=== PATIENT | male | born 1965 | race Caucasian/White ===

== ENCOUNTER → 2016-08-07 | Outpatient (REF) | payer OTHER ==
[~2016-08-07] MED LIST: ALLO100T PO; ASPI32ECTA PO; ATEN25TA PO; ATOR1TAB18 PO; JANU50TA4 PO; RAMI5CA PO; ZYLO300T4 PO; nitroglycerin
[2016-08-07 12:24] LABS: ALBUMIN/GLOBULIN RATIO 1.38 (1.00-1.93); ALKALINE PHOSPHATASE 97 U/L (45-117); ALT/SGPT 40 U/L (12-78); ANION GAP 4 MEQ/L (8-16); AST/SGOT 19 U/L (15-37); BILIRUBIN,TOTAL 0.5 MG/DL (0.2-1.0); BLOOD UREA NITROGEN 16 MG/DL (7-18); CALCIUM LEVEL 8.9 MG/DL (8.5-10.1); CARBON DIOXIDE LEVEL 34 MEQ/L (21-32); CHLORIDE LEVEL 102 MEQ/L (98-107); CHOLESTEROL LEVEL 109 MG/DL (<200); CREATININE FOR GFR 1.19 MG/DL (0.70-1.30); GLOMERULAR FILTRATION RATE > 60.0 (>56); GLUCOSE, FASTING 106 MG/DL (70-105); POTASSIUM SERUM 4.1 MEQ/L (3.5-5.1); SODIUM LEVEL 140 MEQ/L (136-145); TOTAL PROTEIN 6.9 GM/DL (6.4-8.2); TRIGLYCERIDES LEVEL 172 MG/DL (<150); URIC ACID 4.5 MG/DL (3.5-7.2)
== END ==
LOC: M SFHCCLAY 07:42
PROVIDERS: ATTEND Family Medicine
DX: E11.9 Type 2 diabetes mellitus without complications (principal); Z12.5 Encounter for screening for malignant neoplasm of prostate; M1A.0790 Idiopathic chronic gout, unspecified ankle and foot, without tophus (tophi)
CPT/HCPCS: 80053; 80061; 83036; 84550; G0103

== ENCOUNTER → 2016-12-06 | Outpatient (REF) | payer OTHER ==
[~2016-12-06] MED LIST changes: +ASPI325T24 PO; -ASPI32ECTA PO; -ATOR1TAB18 PO; +ATOR80TA59 PO
[2016-12-06 11:26] LABS: BASO % 0.6 % (0.0-1.0); EOS # 0.2 10^3/uL (0.0-0.50); EOS % 4.1 % (0.0-3.0); LYMPH # 1.2 10^3/uL (1.5-4.5); LYMPH % 26.3 % (24.0-44.0); MEAN CORPUSCULAR HEMOGLOBIN 32.1 pg (27.0-33.0); MEAN CORPUSCULAR HGB CONC 34.8 g/dl (32.0-36.5); MEAN CORPUSCULAR VOLUME 92.3 fl (80.0-96.0); MONO # 0.4 10^3/uL (0.0-0.8); MONO % 8.2 % (0.0-5.0); NEUTROPHILS # 2.8 10^3/uL (1.8-7.7); NEUTROPHILS % 60.8 % (36.0-66.0); PLATELET COUNT, AUTOMATED 144 10^3/uL (150-450); RED CELL DISTRIBUTION WIDTH 12.1 % (11.5-14.5); WHITE BLOOD COUNT 4.6 10^3/uL (4.0-10.0)
[2016-12-06 11:32] LABS: ANION GAP 3 MEQ/L (8-16); BLOOD UREA NITROGEN 17 MG/DL (7-18); CARBON DIOXIDE LEVEL 33 MEQ/L (21-32); CHLORIDE LEVEL 104 MEQ/L (98-107); CREATININE FOR GFR 1.17 MG/DL (0.70-1.30); GLOMERULAR FILTRATION RATE > 60.0 (>56); GLUCOSE, FASTING 123 MG/DL (70-105); PHOSPHORUS LEVEL 3.4 MG/DL (2.5-4.9); POTASSIUM SERUM 4.6 MEQ/L (3.5-5.1); SODIUM LEVEL 140 MEQ/L (136-145)
== END ==
LOC: M LABDRAWC 11:18
PROVIDERS: ATTEND Internal Medicine Cardiovascular Disease
DX: R07.2 Precordial pain (principal); I25.2 Old myocardial infarction; I11.9 Hypertensive heart disease without heart failure; Z95.5 Presence of coronary angioplasty implant and graft

== ENCOUNTER → 2017-01-29 | Outpatient (REF) | payer OTHER ==
[2017-01-29 12:17] LABS: ALBUMIN 4.1 GM/DL (3.2-5.2); ALBUMIN/GLOBULIN RATIO 0.87 (1.00-1.93); ALKALINE PHOSPHATASE 110 U/L (45-117); ALT/SGPT 36 U/L (12-78); ANION GAP 7 MEQ/L (8-16); AST/SGOT 16 U/L (7-37); BILIRUBIN,TOTAL 0.4 MG/DL (0.2-1.0); BLOOD UREA NITROGEN 18 MG/DL (7-18); CALCIUM LEVEL 9.3 MG/DL (8.5-10.1); CARBON DIOXIDE LEVEL 30 MEQ/L (21-32); CHLORIDE LEVEL 102 MEQ/L (98-107); CHOLESTEROL LEVEL 131 MG/DL (<200); CREATININE FOR GFR 1.27 MG/DL (0.70-1.30); GLOMERULAR FILTRATION RATE > 60.0 (>56); GLUCOSE, FASTING 123 MG/DL (70-105); POTASSIUM SERUM 4.5 MEQ/L (3.5-5.1); SODIUM LEVEL 139 MEQ/L (136-145); TOTAL PROTEIN 8.8 GM/DL (6.4-8.2); TRIGLYCERIDES LEVEL 130 MG/DL (<150); URIC ACID 4.9 MG/DL (3.5-7.2)
== END ==
LOC: M SFHCCLAY 07:44
PROVIDERS: ATTEND Family Medicine
DX: E11.9 Type 2 diabetes mellitus without complications (principal); M1A.0790 Idiopathic chronic gout, unspecified ankle and foot, without tophus (tophi)

== ENCOUNTER → 2017-10-03 | Outpatient (REF) | payer OTHER ==
[2017-10-03 11:33] LABS: ALBUMIN 3.9 GM/DL (3.2-5.2); ALBUMIN/GLOBULIN RATIO 1.22 (1.00-1.93); ALKALINE PHOSPHATASE 94 U/L (45-117); ALT/SGPT 40 U/L (12-78); ANION GAP 7 MEQ/L (8-16); AST/SGOT 18 U/L (7-37); BILIRUBIN,TOTAL 0.5 MG/DL (0.2-1.0); BLOOD UREA NITROGEN 13 MG/DL (7-18); CALCIUM LEVEL 9.1 MG/DL (8.5-10.1); CARBON DIOXIDE LEVEL 32 MEQ/L (21-32); CHLORIDE LEVEL 102 MEQ/L (98-107); CHOLESTEROL LEVEL 119 MG/DL (<200); CHOLESTEROL RISK RATIO 3.305 (<5); CREATININE FOR GFR 1.22 MG/DL (0.70-1.30); GLOMERULAR FILTRATION RATE > 60.0 (>56); GLUCOSE, FASTING 118 MG/DL (70-100); HDL CHOLESTEROL 36 MG/DL (>40); LDL CHOLESTEROL 53.8 MG/DL (<100); NON-HDL-C 83 MG/DL; POTASSIUM SERUM 4.6 MEQ/L (3.5-5.1); PSA SCREENING 0.55 NG/ML (< 4.0); SODIUM LEVEL 141 MEQ/L (136-145); TOTAL PROTEIN 7.1 GM/DL (6.4-8.2); TRIGLYCERIDES LEVEL 146 MG/DL (<150)
[2017-10-03 12:06] LABS: ESTIMATED AVERAGE GLUCOSE 154 MG/DL (60-110)
[2017-10-03 12:14] LABS: CREATININE, URINE 86.2 MG/DL; MALB URINE SIEMENS < 5.0 MG/L; MAU/CREAT RATIO 5.8 MCG/MG (0.0-30.0)
== END ==
LOC: M SFHCCLAY 07:45
DX: E11.9 Type 2 diabetes mellitus without complications (principal); Z12.5 Encounter for screening for malignant neoplasm of prostate; M1A.0790 Idiopathic chronic gout, unspecified ankle and foot, without tophus (tophi)

== ENCOUNTER → 2018-05-06 | Outpatient (REF) | payer OTHER ==
[~2018-05-06] MED LIST changes: -ASPI325T24 PO; +ASPI325T25 PO; +RAMI1CAP24 PO; -RAMI5CA PO; -ZYLO300T4 PO; +ZYLO300T6 PO
[2018-05-06 12:20] LABS: BLOOD UREA NITROGEN 20 MG/DL (7-18); CARBON DIOXIDE LEVEL 28 MEQ/L (21-32); CHLORIDE LEVEL 102 MEQ/L (98-107); CREATININE FOR GFR 1.31 MG/DL (0.70-1.30); GLOMERULAR FILTRATION RATE > 60.0 (>56); GLUCOSE, FASTING 125 MG/DL (70-100); POTASSIUM SERUM 4.4 MEQ/L (3.5-5.1); SODIUM LEVEL 137 MEQ/L (136-145)
[2018-05-06 13:12] LABS: HEMOGLOBIN A1c 6.5 %
== END ==
LOC: M SFHCCLAY 07:36
PROVIDERS: ATTEND Family Medicine
DX: E11.9 Type 2 diabetes mellitus without complications (principal)

== ENCOUNTER → 2018-11-05 | Outpatient (REF) | payer OTHER ==
[~2018-11-05] MED LIST changes: +ASPI-255 PO; -ASPI325T25 PO
[2018-11-05 12:46] LABS: ALBUMIN 4.1 GM/DL (3.2-5.2); ALT/SGPT 44 U/L (12-78); BILIRUBIN,TOTAL 0.7 MG/DL (0.2-1.0); BLOOD UREA NITROGEN 17 MG/DL (7-18); CARBON DIOXIDE LEVEL 30 MEQ/L (21-32); CHLORIDE LEVEL 101 MEQ/L (98-107); CHOLESTEROL LEVEL 137 MG/DL (<200); CHOLESTEROL RISK RATIO 3.261 (<5); CREATININE FOR GFR 1.21 MG/DL (0.70-1.30); GLOMERULAR FILTRATION RATE > 60.0 (>56); GLUCOSE, FASTING 122 MG/DL (70-100); HDL CHOLESTEROL 42 MG/DL (>40); LDL CHOLESTEROL 74 MG/DL (<100); NON-HDL-C 95 MG/DL; POTASSIUM SERUM 4.7 MEQ/L (3.5-5.1); SODIUM LEVEL 138 MEQ/L (136-145); TOTAL PROTEIN 7.2 GM/DL (6.4-8.2); TRIGLYCERIDES LEVEL 107 MG/DL (<150); URIC ACID 4.5 MG/DL (3.5-7.2)
[2018-11-05 13:13] LABS: CREATININE, URINE 56.7 MG/DL; MALB URINE SIEMENS 34.1 MG/L; MAU/CREAT RATIO 60.1 MCG/MG (0.0-30.0)
[2018-11-05 15:11] LABS: HEMOGLOBIN A1c 6.5 %
== END ==
LOC: M SFHCCLAY 09:18
PROVIDERS: ATTEND Family Medicine
DX: E11.9 Type 2 diabetes mellitus without complications (principal); M1A.9XX0 Chronic gout, unspecified, without tophus (tophi)

== ENCOUNTER → 2019-03-29 | Outpatient (CLI) | payer BC, OTHER ==
--- NOTE | 2019-03-29 08:58 | REP ---
Clinical: the cough . Comparison: None . Technique: PA and lateral. Findings: Evidence of prior sternotomy and CABG. Cardiac silhouette is normal. The lung cano are clear and without acute consolidation, effusion, or pneumothorax. The skeletal structures are intact and normal. Impression: 1. No acute cardiopulmonary process. Electronically Signed by Glen Hernandez MD 03/29/2019 08:49 A
== END ==
LOC: M CLY 08:11
PROVIDERS: ATTEND Family Medicine
DX: R05 Cough (principal)

== ENCOUNTER → 2019-05-12 | Outpatient (REF) | payer OTHER ==
[2019-05-12 11:37] LABS: ALBUMIN 4.1 GM/DL (3.2-5.2); ALT/SGPT 40 U/L (12-78); BILIRUBIN,TOTAL 0.5 MG/DL (0.2-1.0); BLOOD UREA NITROGEN 20 MG/DL (7-18); CALCIUM LEVEL 9.4 MG/DL (8.5-10.1); CARBON DIOXIDE LEVEL 34 MEQ/L (21-32); CHLORIDE LEVEL 100 MEQ/L (98-107); CREATININE FOR GFR 1.31 MG/DL (0.70-1.30); GLOMERULAR FILTRATION RATE > 60.0 (>56); GLUCOSE, FASTING 131 MG/DL (70-100); POTASSIUM SERUM 4.7 MEQ/L (3.5-5.1); SODIUM LEVEL 138 MEQ/L (136-145); TOTAL PROTEIN 7.3 GM/DL (6.4-8.2)
[2019-05-12 11:47] LABS: HEMOGLOBIN A1c 7.3 %
== END ==
LOC: M SFHCCLAY 08:05
PROVIDERS: ATTEND Family Medicine
DX: E11.9 Type 2 diabetes mellitus without complications (principal)

== ENCOUNTER → 2019-11-15 | Outpatient (REF) | payer OTHER ==
[2019-11-15 12:39] LABS: BASO # 0.1 10^3/uL (0.0-0.2); BASO % 1.1 % (0.0-1.0); EOS # 0.3 10^3/uL (0.0-0.5); HEMATOCRIT 41.2 % (42.0-52.0); HEMOGLOBIN 13.5 g/dl (13.5-17.5); LYMPH # 1.5 10^3/uL (1.5-5.0); LYMPH % 27.5 % (24.0-44.0); MEAN CORPUSCULAR HEMOGLOBIN 30.7 pg (27.0-33.0); MEAN CORPUSCULAR HGB CONC 32.8 g/dl (32.0-36.5); MEAN CORPUSCULAR VOLUME 93.6 fl (80.0-96.0); MONO # 0.5 10^3/uL (0.0-0.8); MONO % 9.3 % (0.0-5.0); NEUTROPHILS # 3.2 10^3/uL (1.5-8.5); NEUTROPHILS % 56.9 % (36.0-66.0); PLATELET COUNT, AUTOMATED 165 10^3/uL (150-450); WHITE BLOOD COUNT 5.6 10^3/uL (4.0-10.0)
[2019-11-15 12:56] LABS: ALBUMIN 3.8 GM/DL (3.2-5.2); ALT/SGPT 38 U/L (12-78); BILIRUBIN,TOTAL 0.5 MG/DL (0.2-1.0); BLOOD UREA NITROGEN 16 MG/DL (7-18); CALCIUM LEVEL 9.3 MG/DL (8.5-10.1); CARBON DIOXIDE LEVEL 29 MEQ/L (21-32); CHLORIDE LEVEL 104 MEQ/L (98-107); CHOLESTEROL LEVEL 103 MG/DL (<200); CHOLESTEROL RISK RATIO 2.942 (<5); CREATININE FOR GFR 1.21 MG/DL (0.70-1.30); GLOMERULAR FILTRATION RATE > 60.0 (>56); GLUCOSE, FASTING 129 MG/DL (70-100); HDL CHOLESTEROL 35 MG/DL (>40); LDL CHOLESTEROL 43 MG/DL (<100); MAGNESIUM LEVEL 1.9 MG/DL (1.8-2.4); NON-HDL-C 68 MG/DL; POTASSIUM SERUM 4.6 MEQ/L (3.5-5.1); SODIUM LEVEL 138 MEQ/L (136-145); TOTAL PROTEIN 6.6 GM/DL (6.4-8.2); TRIGLYCERIDES LEVEL 124 MG/DL (<150); URIC ACID 4.4 MG/DL (3.5-7.2)
[2019-11-15 13:08] LABS: HEMOGLOBIN A1c 6.5 %
== END ==
LOC: M LABDRAWC 11:09
PROVIDERS: ATTEND Family Medicine
DX: E11.9 Type 2 diabetes mellitus without complications (principal); M1A.9XX0 Chronic gout, unspecified, without tophus (tophi); I11.9 Hypertensive heart disease without heart failure

== ENCOUNTER → 2020-05-10 | Outpatient (REF) | payer OTHER ==
[2020-05-10 11:53] LABS: HEMOGLOBIN A1c 6.8 %
[2020-05-10 12:04] LABS: BLOOD UREA NITROGEN 20 MG/DL (7-18); CALCIUM LEVEL 9.3 MG/DL (8.5-10.1); CARBON DIOXIDE LEVEL 32 MEQ/L (21-32); CHLORIDE LEVEL 103 MEQ/L (98-107); CREATININE FOR GFR 1.15 MG/DL (0.70-1.30); GLOMERULAR FILTRATION RATE > 60.0 (>56); GLUCOSE, FASTING 127 MG/DL (70-100); POTASSIUM SERUM 4.8 MEQ/L (3.5-5.1); SODIUM LEVEL 138 MEQ/L (136-145)
== END ==
LOC: M SFHCCLAY 07:59
PROVIDERS: ATTEND Family Medicine
DX: E11.9 Type 2 diabetes mellitus without complications (principal)

== ENCOUNTER → 2020-11-10 | Outpatient (REF) | payer OTHER ==
[2020-11-10 11:26] LABS: ALBUMIN 3.6 GM/DL (3.2-5.2); ALT/SGPT 32 U/L (12-78); BILIRUBIN,TOTAL 0.5 MG/DL (0.2-1.0); BLOOD UREA NITROGEN 15 MG/DL (7-18); CALCIUM LEVEL 9.3 MG/DL (8.5-10.1); CARBON DIOXIDE LEVEL 31 MEQ/L (21-32); CHLORIDE LEVEL 100 MEQ/L (98-107); CHOLESTEROL LEVEL 106 MG/DL (<200); CHOLESTEROL RISK RATIO 2.864 (<5); CREATININE FOR GFR 1.23 MG/DL (0.70-1.30); GLOMERULAR FILTRATION RATE > 60.0 (>56); GLUCOSE, FASTING 127 MG/DL (70-100); HDL CHOLESTEROL 37 MG/DL (>40); LDL CHOLESTEROL 48 MG/DL (<100); MAGNESIUM LEVEL 1.7 MG/DL (1.8-2.4); NON-HDL-C 69 MG/DL; POTASSIUM SERUM 4.2 MEQ/L (3.5-5.1); SODIUM LEVEL 136 MEQ/L (136-145); TOTAL PROTEIN 6.6 GM/DL (6.4-8.2); TRIGLYCERIDES LEVEL 106 MG/DL (<150); URIC ACID 4.2 MG/DL (3.5-7.2)
[2020-11-10 11:33] LABS: CREATININE, URINE 81.8 MG/DL; MALB URINE SIEMENS < 5.0 MG/L; MAU/CREAT RATIO 6.1 MCG/MG (0.0-30.0)
[2020-11-10 12:15] LABS: HEMOGLOBIN A1c 6.7 %
== END ==
LOC: M SFHCCLAY 08:39
PROVIDERS: ATTEND Family Medicine
DX: E11.9 Type 2 diabetes mellitus without complications (principal); I25.10 Atherosclerotic heart disease of native coronary artery without angina pectoris; M1A.9XX0 Chronic gout, unspecified, without tophus (tophi)

== ENCOUNTER → 2021-05-23 | Outpatient (REF) | payer OTHER ==
[2021-05-23 12:01] LABS: ALBUMIN 4.1 GM/DL (3.2-5.2); ALT/SGPT 43 U/L (12-78); BILIRUBIN,TOTAL 0.6 MG/DL (0.2-1.0); BLOOD UREA NITROGEN 18 MG/DL (7-18); CALCIUM LEVEL 9.3 MG/DL (8.5-10.1); CARBON DIOXIDE LEVEL 32 MEQ/L (21-32); CHLORIDE LEVEL 105 MEQ/L (98-107); CREATININE FOR GFR 1.13 MG/DL (0.70-1.30); GLOMERULAR FILTRATION RATE > 60.0 (>56); GLUCOSE, FASTING 124 MG/DL (70-100); POTASSIUM SERUM 4.6 MEQ/L (3.5-5.1); SODIUM LEVEL 140 MEQ/L (136-145); TOTAL PROTEIN 6.9 GM/DL (6.4-8.2)
[2021-05-23 12:29] LABS: HEMOGLOBIN A1c 6.6 %
== END ==
LOC: M SFHCCLAY 07:39
PROVIDERS: ATTEND Family Medicine
DX: E11.9 Type 2 diabetes mellitus without complications (principal)

== ENCOUNTER → 2022-02-05 | Outpatient (REF) | payer OTHER ==
[2022-02-05 14:15] LABS: HEMOGLOBIN A1c 7.6 % (4.0-6.0)
[2022-02-05 14:18] LABS: URIC ACID 4.3 MG/DL (3.7-9.2)
[2022-02-05 14:21] LABS: ALBUMIN 3.7 G/DL (3.2-5.2); ALKALINE PHOSPHATASE 113 U/L (46-116); ALT/SGPT 26 U/L (7.0-40); AST/SGOT 19 U/L (<34); BILIRUBIN,TOTAL 0.6 MG/DL (0.3-1.2); BLOOD UREA NITROGEN 18 MG/DL (9-23); CALCIUM LEVEL 9.3 MG/DL (8.5-10.1); CARBON DIOXIDE LEVEL 29 MMOL/L (20-31); CHLORIDE LEVEL 101 MMOL/L (98-107); CHOLESTEROL LEVEL 101 MG/DL (<200); CHOLESTEROL RISK RATIO 3.11 (<5); CREATININE FOR GFR 1.07 MG/DL (0.70-1.30); CREATININE, URINE 100.7 MG/DL; GLOMERULAR FILTRATION RATE > 60.0 (>56); GLUCOSE, FASTING 143 MG/DL (60-100); HDL CHOLESTEROL 32.4 MG/DL (>40); LDL CHOLESTEROL 50.2 MG/DL (<100); NON-HDL-C 69 MG/DL; SODIUM LEVEL 137 MMOL/L (136-145); TOTAL PROTEIN 6.6 G/DL (5.7-8.2); TRIGLYCERIDES LEVEL 92 MG/DL (<150)
[2022-02-05 14:22] LABS: MAU/CREAT RATIO 8.9 MCG/MG (0.0-30.0)
== END ==
LOC: M SFHCCLAY 09:23
PROVIDERS: ATTEND Family Medicine
DX: E11.9 Type 2 diabetes mellitus without complications (principal); I25.10 Atherosclerotic heart disease of native coronary artery without angina pectoris; M1A.9XX0 Chronic gout, unspecified, without tophus (tophi)

== ENCOUNTER → 2022-05-27 | Outpatient (REF) | payer BC, OTHER ==
[2022-05-27 11:58] LABS: ALBUMIN 3.7 G/DL (3.2-5.2); ALKALINE PHOSPHATASE 94 U/L (46-116); ALT/SGPT 32 U/L (7.0-40); AST/SGOT 11 U/L (<34); BILIRUBIN,TOTAL 0.3 MG/DL (0.3-1.2); BLOOD UREA NITROGEN 16 MG/DL (9-23); CALCIUM LEVEL 8.6 MG/DL (8.5-10.1); CARBON DIOXIDE LEVEL 32 MMOL/L (20-31); CHLORIDE LEVEL 100 MMOL/L (98-107); CREATININE FOR GFR 1.18 MG/DL (0.70-1.30); GLOMERULAR FILTRATION RATE > 60.0 (>56); GLUCOSE, FASTING 128 MG/DL (60-100); POTASSIUM SERUM 4.6 MMOL/L (3.5-5.1); SODIUM LEVEL 135 MMOL/L (136-145); TOTAL PROTEIN 6.1 G/DL (5.7-8.2)
[2022-05-27 11:59] LABS: BASO % 0.5 % (0.0-1.0); EOS # 0.2 10^3/uL (0.0-0.5); EOS % 4.7 % (0.0-3.0); HEMATOCRIT 40.7 % (42.0-52.0); HEMOGLOBIN 13.4 g/dl (13.5-17.5); LYMPH # 1.5 10^3/uL (1.5-5.0); LYMPH % 39.1 % (24.0-44.0); MEAN CORPUSCULAR HEMOGLOBIN 30.5 pg (27.0-33.0); MEAN CORPUSCULAR HGB CONC 32.9 g/dl (32.0-36.5); MEAN CORPUSCULAR VOLUME 92.7 fl (80.0-96.0); MONO # 0.4 10^3/uL (0.0-0.8); MONO % 11.6 % (2.0-8.0); NEUTROPHILS # 1.7 10^3/uL (1.5-8.5); NEUTROPHILS % 43.8 % (36.0-66.0); PLATELET COUNT, AUTOMATED 137 10^3/uL (150-450); RED BLOOD COUNT 4.39 10^6/uL (4.30-6.10); WHITE BLOOD COUNT 3.8 10^3/uL (4.0-10.0)
== END ==
LOC: M LABDRAWC 11:12
PROVIDERS: ATTEND Internal Medicine Cardiovascular Disease
DX: R94.31 Abnormal electrocardiogram [ECG] [EKG] (principal); I25.10 Atherosclerotic heart disease of native coronary artery without angina pectoris; I11.9 Hypertensive heart disease without heart failure; I35.9 Nonrheumatic aortic valve disorder, unspecified

== ENCOUNTER → 2022-08-12 | Outpatient (REF) | payer OTHER ==
[2022-08-12 11:45] LABS: ALBUMIN 4.1 G/DL (3.2-5.2); ALKALINE PHOSPHATASE 93 U/L (46-116); ALT/SGPT 28 U/L (7.0-40); AST/SGOT 13 U/L (<34); BILIRUBIN,TOTAL 0.6 MG/DL (0.3-1.2); BLOOD UREA NITROGEN 15 MG/DL (9-23); CALCIUM LEVEL 8.9 MG/DL (8.5-10.1); CARBON DIOXIDE LEVEL 28 MMOL/L (20-31); CHLORIDE LEVEL 101 MMOL/L (98-107); CREATININE FOR GFR 1.05 MG/DL (0.70-1.30); GLOMERULAR FILTRATION RATE > 60.0 (>56); GLUCOSE, FASTING 132 MG/DL (60-100); POTASSIUM SERUM 4.5 MMOL/L (3.5-5.1); SODIUM LEVEL 135 MMOL/L (136-145); TOTAL PROTEIN 6.7 G/DL (5.7-8.2)
== END ==
LOC: M SFHCCLAY 08:51
PROVIDERS: ATTEND Family Medicine
DX: E11.9 Type 2 diabetes mellitus without complications (principal)

== ENCOUNTER → 2022-12-29 | Outpatient (CLI) | payer BC, OTHER | LOC: M SLEEP 20:00 | PROVIDERS: ATTEND Physician Assistant | DX: G47.33 Obstructive sleep apnea (adult) (pediatric) (principal) ==

== ENCOUNTER → 2023-02-18 | Outpatient (REF) | payer BC, OTHER ==
[2023-02-18 19:16] LABS: ALKALINE PHOSPHATASE 76 U/L (46-116); ALT/SGPT 44 U/L (7.0-40); AST/SGOT 20 U/L (<34); BLOOD UREA NITROGEN 16 MG/DL (9-23); CALCIUM LEVEL 9.3 MG/DL (8.5-10.1); CARBON DIOXIDE LEVEL 31 MMOL/L (20-31); CHLORIDE LEVEL 100 MMOL/L (98-107); CHOLESTEROL LEVEL 119 MG/DL (<200); CHOLESTEROL RISK RATIO 3.41 (<5); CREATININE FOR GFR 0.96 MG/DL (0.70-1.30); GLOMERULAR FILTRATION RATE > 60.0 (>56); GLUCOSE, FASTING 227 MG/DL (60-100); HDL CHOLESTEROL 34.8 MG/DL (>40); LDL CHOLESTEROL 51.6 MG/DL (<100); NON-HDL-C 84.2 MG/DL; POTASSIUM SERUM 4.4 MMOL/L (3.5-5.1); SODIUM LEVEL 136 MMOL/L (136-145); TOTAL PROTEIN 6.6 G/DL (5.7-8.2); TRIGLYCERIDES LEVEL 163 MG/DL (<150)
[2023-02-18 19:17] LABS: CREATININE, URINE 24.9 MG/DL; MALB URINE SIEMENS < 3.0 MG/L
[2023-02-18 19:46] LABS: HEMOGLOBIN A1c 7.5 % (4.0-6.0)
== END ==
LOC: M SFHCCLAY 13:38
PROVIDERS: ATTEND Family Medicine
DX: E11.9 Type 2 diabetes mellitus without complications (principal)

== ENCOUNTER → 2023-08-27 | Outpatient (CLI) | payer BC ==
[~2023-08-27] MED LIST changes: -RAMI1CAP24 PO; +RAMI5CAP60 PO
== END ==
LOC: M PLAIMG 13:20
PROVIDERS: ATTEND Internal Medicine Cardiovascular Disease
DX: I35.8 Other nonrheumatic aortic valve disorders (principal)

== ENCOUNTER → 2023-08-27 | Outpatient (REF) | payer BC ==
[2023-08-27 12:55] LABS: HEMOGLOBIN A1c 7.6 % (4.0-6.0)
[2023-08-27 13:05] LABS: ALBUMIN 4.1 G/DL (3.2-5.2); ALKALINE PHOSPHATASE 82 U/L (46-116); ALT/SGPT 34 U/L (7.0-40); AST/SGOT 15 U/L (<34); BLOOD UREA NITROGEN 16 MG/DL (9-23); CALCIUM LEVEL 9.4 MG/DL (8.5-10.1); CARBON DIOXIDE LEVEL 30 MMOL/L (20-31); CHLORIDE LEVEL 101 MMOL/L (98-107); CREATININE FOR GFR 1.09 MG/DL (0.70-1.30); GLOMERULAR FILTRATION RATE > 60.0 (>56); GLUCOSE, FASTING 156 MG/DL (60-100); POTASSIUM SERUM 4.6 MMOL/L (3.5-5.1); SODIUM LEVEL 136 MMOL/L (136-145); TOTAL PROTEIN 6.7 G/DL (5.7-8.2)
== END ==
LOC: M SFHCCLAY 07:35
PROVIDERS: ATTEND Family Medicine
DX: E11.9 Type 2 diabetes mellitus without complications (principal)

== ENCOUNTER → 2024-03-12 | Outpatient (REF) | payer BC ==
[2024-03-12 11:35] LABS: HEMOGLOBIN A1c 7.3 % (4.0-6.0)
[2024-03-12 11:41] LABS: CREATININE, URINE 98.4 MG/DL; MALB URINE SIEMENS < 3.0 MG/L
[2024-03-12 11:42] LABS: ALBUMIN 4.2 G/DL (3.2-5.2); ALKALINE PHOSPHATASE 102 U/L (40-129); ALT/SGPT 34 U/L (7.0-40); AST/SGOT 21 U/L (<34); BILIRUBIN,TOTAL 0.6 MG/DL (0.3-1.2); BLOOD UREA NITROGEN 25 MG/DL (9-23); CARBON DIOXIDE LEVEL 32 MMOL/L (20-31); CHLORIDE LEVEL 98 MMOL/L (98-107); CHOLESTEROL LEVEL 120 MG/DL (<200); CHOLESTEROL RISK RATIO 3.84 (<5); CREATININE FOR GFR 1.25 MG/DL (0.70-1.30); GLOMERULAR FILTRATION RATE > 60.0 (>56); GLUCOSE, FASTING 140 MG/DL (60-100); HDL CHOLESTEROL 31.2 MG/DL (>40); LDL CHOLESTEROL 40.6 MG/DL (<100); NON-HDL-C 88.8 MG/DL; POTASSIUM SERUM 4.3 MMOL/L (3.5-5.1); PSA SCREENING 0.52 NG/ML (< 4.00); SODIUM LEVEL 138 MMOL/L (136-145); TOTAL PROTEIN 7.5 G/DL (5.7-8.2); TRIGLYCERIDES LEVEL 241 MG/DL (<150)
== END ==
LOC: M SFHCCLAY 07:47
PROVIDERS: ATTEND Family Medicine
DX: E11.9 Type 2 diabetes mellitus without complications (principal); Z12.5 Encounter for screening for malignant neoplasm of prostate
CPT/HCPCS: 80053; 80061; 82043; 83036; 83735; G0103

== ENCOUNTER → 2024-09-06 | Outpatient (REF) | payer BC ==
[2024-09-06 13:16] LABS: ALT/SGPT 33.0 U/L (7.0-40); AST/SGOT 22.0 U/L (<34); CALCIUM LEVEL 9.3 MG/DL (8.3-10.6); CARBON DIOXIDE LEVEL 29.0 MMOL/L (20-31); CHLORIDE LEVEL 99.0 MMOL/L (98-107); CREATININE FOR GFR 1.23 MG/DL (0.70-1.30); GLOMERULAR FILTRATION RATE 67.2 (>49); POTASSIUM SERUM 4.8 MMOL/L (3.5-5.1); SODIUM LEVEL 138.0 MMOL/L (136-145)
[2024-09-06 13:28] LABS: ESTIMATED AVERAGE GLUCOSE 166.0 MG/DL (60-110)
== END ==
LOC: M SFHCCLAY 07:52
PROVIDERS: ATTEND Family Medicine
DX: E11.9 Type 2 diabetes mellitus without complications (principal)